=== PATIENT | female | born 2000 ===

== ENCOUNTER → 2022-03-28 | Emergency (ER) | payer OTHER ==
[~2022-03-28] VITALS: Ht 167.6 cm; Wt 85.7 kg
[~2022-03-28] MED LIST: ANTIFUNGAL113 GM TOP; DUI500 PO; LOMAIRA8 MG PO
== END | disposition home or self-care (01) ==
LOC: ER 18:13
DX: L03.316 Cellulitis of umbilicus (principal)

== ENCOUNTER 2022-04-02 16:02 | Outpatient (CLI) | payer OTHER | END 2022-04-02 16:03 | disposition home or self-care (01) | LOC: RAD 16:02 | DX: M54.2 Cervicalgia (principal); M54.6 Pain in thoracic spine ==

== ENCOUNTER → 2022-06-04 | Outpatient (CLI) | payer OTHER ==
[~2022-06-04] MED LIST changes: +ETODOLAC400 MG PO; +METAXALONE800 MG PO
== END | disposition home or self-care (01) ==
LOC: PPH VACUNA 08:00
PROVIDERS: ATTEND Emergency Medicine Pediatric Emergency Medicine
DX: Z23 Encounter for immunization (principal)

== ENCOUNTER 2022-08-19 12:27 | Emergency (ER) | payer OTHER ==
[~2022-08-19] VITALS: Ht 167.6 cm; Wt 86.2 kg
== END 2022-08-19 14:14 | disposition home or self-care (01) ==
LOC: ER 12:27
DX: S61.217A Laceration without foreign body of left little finger without damage to nail, initial encounter (principal); W26.0XXA Contact with knife, initial encounter; Y93.89 Activity, other specified; Y92.89 Other specified places as the place of occurrence of the external cause; Y99.9 Unspecified external cause status

== ENCOUNTER 2023-06-29 03:40 | Emergency (ER) | payer OTHER ==
[~2023-06-29] VITALS: Ht 167.6 cm; Wt 95.3 kg
[2023-06-29 05:58] LABS: CALCIUM 9.2 mg/dL (8.5-10.1); CREATININE SERUM 0.86 mg/dL (0.55-1.02); GFR 81.77; POTASSIUM 3.9 mEq/L (3.5-5.1)
[2023-06-29 06:18] LABS: PH,URINE 5.5 (5.0-8.0); URINE APPEARANCE Clear; URINE BILIRRUBIN Negative (NEGATIVE); URINE BLOOD Negative; URINE COLOR Yellow; URINE GLUCOSE Negative (NEGATIVE); URINE LEUKOCYTE Negative; URINE NITRATE Negative; URINE PROTEIN Negative (NEGATIVE); URINE UROBILINOGEN 0.2 E.U./dl
[2023-06-29 06:20] LABS: HEMATOCRIT 37.1 % (36.0-45.00); HEMOGLOBIN 12.7 g/dL (12.0-15.00); MEAN CELL VOLUME 85.7 fL (80.00-100.00); MEAN CORPUSCULAR HEMOGLOBIN 29.4 pg (27.00-32.0); MEAN CORPUSCULAR HGB CONC 34.3 g/dl (32.0-36.0); PLATELET COUNT 257 K/uL (150-450); RED BLOOD COUNT 4.33 M/uL (4.00-6.00); RED CELL DISTRIBUTION WIDTH 13.7 % (11.5-14.5)
[2023-06-29 06:21] LABS: URINE BACTERIA 2383.6 uL (0.0-1933); URINE EPITHELIAL CELLS 41.1 uL (0.0-38.8); URINE RBC 45.9 uL (0.0-20.8); URINE WBC 25.9 uL (0.0-23.2)
== END 2023-06-29 12:34 | disposition home or self-care (01) ==
LOC: ER 03:40
PROVIDERS: General Practice
DX: K52.89 Other specified noninfective gastroenteritis and colitis (principal)